=== PATIENT | male | born 1960 | race Caucasian/White ===

== ENCOUNTER 2017-12-29 05:54 | Observation (INO) ==
[2017-12-29] MEDS ORDERED: MORPHINE 4 MG/1 ML VIAL IV STA (06:19)
[2017-12-29] MEDS ORDERED: ENOXAPARIN 100 MG/ML SYRINGE SUBCUT STA (06:19)
[2017-12-29] MEDS ORDERED: ASPIRIN 325 MG TABLET PO STA (06:19)
[2017-12-29] MEDS ORDERED: ONDANSETRON 4 MG/2 ML VIAL IV STA (06:19)
[2017-12-29] MEDS ORDERED: NITROGLYCERIN 2% OINT 1 INCH/GM PACK TOP STA (06:19)
[2017-12-29] MEDS ORDERED: ENOXAPARIN 100 MG/ML SYRINGE SUBCUT ONE (06:21)
[2017-12-29] MEDS ORDERED: ENOXAPARIN 30 MG/0.3 ML SYRINGE ONE (06:22)
[2017-12-29] MEDS ORDERED: SODIUM CHLORIDE 0.9% 1,000 ML IV STA ×2 (06:42→07:57)
[2017-12-29 07:25] LABS: INR 1.2; PT Patient Result 12.3 SECS; Partial Thromboplastin Time 29.1 SECS (0-40)
[2017-12-29 07:37] LABS: Basophils % 0.4 % (0.0-0.8); Eosinophils # 0.2 10*3/uL (0.0-0.87); Eosinophils % 2.8 % (0.00-10.9); Immature Granulocytes % 0.3 %; Immature Granulocytes Absolute 0.02 #; Lymphocytes # 0.7 10*3/uL (1.4-4.0); Lymphocytes % 8.1 % (21.2-54.2); Mean Corpuscular HGB Conc 34.4 GM/DL (32-36); Mean Corpuscular Hemoglobin 32 PG (27-34); Mean Corpuscular Volume 93.5 FL (87-102); Mean Platelet Volume 10.9 FL (9.6-12.0); Monocytes # 0.5 10*3/uL (0.11-0.8); Monocytes % 5.6 % (1.7-12.7); Neutrophils # 6.6 10*3/uL (1.4-7.4); Neutrophils % 82.8 % (38.7-73.9); Platelet Count 169 T/CUMM (130-400); Red Blood Count 6.44 MC/CUMM (3.8-5.5); Red Cell Distribution Width 13.2 % (9.3-17.3)
[2017-12-29 07:40] LABS: Hematocrit 60.2 VOL% (42.0-52.0); Hemoglobin 20.7 GM/DL (14.0-18.0)
[2017-12-29 07:54] LABS: Albumin 3.8 G/DL (3.4-5.0); Bilirubin,Total 1.4 MG/DL (0.2-1.0); Calcium 9.2 MG/DL (8.5-10.1); Osmolality,Calculated 286.3 MOS/KG (273-304); Potassium 4.4 MMOL/L (3.5-5.1); Total Protein 7.4 G/DL (6.4-8.3)
[2017-12-29] MEDS ORDERED: ONDANSETRON 4 MG/2 ML VIAL IV PRN (08:39)
[2017-12-29] MEDS ORDERED: diphenhydrAMINE CAP 25 MG CAPSULE PO PRN (08:39)
[2017-12-29] MEDS ORDERED: ACETAMINOPHEN 325 MG TABLET PO PRN (08:39)
[2017-12-29] MEDS ORDERED: MORPHINE 4 MG/1 ML VIAL IV PRN (08:39)
[2017-12-29] MEDS ORDERED: NON-FORMULARY MEDICATION (Mesalamine [Lialda] 2.4 GM) PO SCH (09:00)
[2017-12-29] MEDS: SODIUM CHLORIDE 0.9% 1,000 ML IV SCH ×2 (10:53→21:58)
[2017-12-29] MEDS: LISINOPRIL 20 MG TABLET PO SCH (10:55)
[2017-12-29] MEDS: PANTOPRAZOLE 40 MG TABLET PO SCH (10:55)
[2017-12-30 05:34] LABS: Basophils % 0.4 % (0.0-0.8); Eosinophils # 0.1 10*3/uL (0.0-0.87); Eosinophils % 2.6 % (0.00-10.9); Hematocrit 48.1 VOL% (42.0-52.0); Hemoglobin 16.4 GM/DL (14.0-18.0); Immature Granulocytes % 0.4 %; Immature Granulocytes Absolute 0.02 #; Lymphocytes # 1.5 10*3/uL (1.4-4.0); Lymphocytes % 27.9 % (21.2-54.2); Mean Corpuscular HGB Conc 34.1 GM/DL (32-36); Mean Corpuscular Hemoglobin 32 PG (27-34); Mean Corpuscular Volume 94.3 FL (87-102); Mean Platelet Volume 10.6 FL (9.6-12.0); Monocytes # 0.6 10*3/uL (0.11-0.8); Monocytes % 10.9 % (1.7-12.7); Neutrophils # 3.1 10*3/uL (1.4-7.4); Neutrophils % 57.8 % (38.7-73.9); Platelet Count 126 T/CUMM (130-400); Red Cell Distribution Width 12.7 % (9.3-17.3); White Blood Count 5.3 T/CUMM (4-12)
[2017-12-30 06:15] LABS: Albumin 2.9 G/DL (3.4-5.0); Bilirubin,Total 1.1 MG/DL (0.2-1.0); Calcium 7.3 MG/DL (8.5-10.1); Osmolality,Calculated 278.5 MOS/KG (273-304); Potassium 3.5 MMOL/L (3.5-5.1); Risk Ratio 4.22; Thyroid Stimulating Hormone 1.21 uIU/ml (0.358-3.74); Total Protein 5.7 G/DL (6.4-8.3); VLDL CHOLESTEROL 21.4 MG/DL
[2017-12-30] MEDS ORDERED: LEVOTHYROXINE 50 MCG TABLET PO SCH (07:00)
[2017-12-30] MEDS ORDERED: MAGNESIUM SULF RIDER 4 GM in PREMIX 1 EACH IV PRN (08:39)
[2017-12-30] MEDS ORDERED: MAGNESIUM SULF RIDER 2 GM in PREMIX 1 EACH IV PRN (08:39)
[2017-12-30] MEDS ORDERED: ENOXAPARIN 40 MG/0.4 ML SYRINGE SUBCUT SCH (09:00)
[2017-12-30] MEDS ORDERED: ASPIRIN CHEW 81 MG TABLET PO SCH (09:00)
[2017-12-30] MEDS: LISINOPRIL 20 MG TABLET PO SCH (09:01)
[2017-12-30] MEDS: PANTOPRAZOLE 40 MG TABLET PO SCH (09:01)
[2017-12-30] MEDS: SODIUM CHLORIDE 0.9% 1,000 ML IV SCH (09:22)
[2017-12-30 12:53] VITALS: BP 110/79
[2017-12-31 12:07] LABS: Erythropoietin 11.3 mIU/mL (2.6 - 18.5)
[2018-01-02 13:56] LABS: JAK2 Result see interpretation
== END 2017-12-30 13:49 | disposition home or self-care (01) ==
LOC: N.EDINP 05:54 → N.ED 05:54 → N.2W 09:29 → N.TELEN 11:03
PROVIDERS: ADMIT Internal Medicine; ATTEND Internal Medicine

== ENCOUNTER 2020-02-18 08:05 | Observation (INO) ==
[2020-02-18] MEDS ORDERED: methylPREDNISolone SOD SUC 125 MG/2 ML VIAL IV STA (08:45)
[2020-02-18 09:13] LABS: Basophils % 0.3 % (0.0-0.8); Eosinophils # 0.1 10*3/uL (0.0-0.87); Eosinophils % 1.1 % (0.00-10.9); Hematocrit 48.6 VOL% (42.0-52.0); Hemoglobin 17.4 GM/DL (14.0-18.0); Immature Granulocytes % 0.4 %; Immature Granulocytes Absolute 0.05 #; Lymphocytes # 1.9 10*3/uL (1.4-4.0); Lymphocytes % 16.1 % (21.2-54.2); Mean Corpuscular HGB Conc 35.8 GM/DL (32-36); Mean Corpuscular Volume 90.8 FL (87-102); Mean Platelet Volume 9.6 FL (9.6-12.0); Monocytes % 2.2 % (1.7-12.7); Neutrophils % 79.9 % (38.7-73.9); Platelet Count 159 T/CUMM (130-400); Red Blood Count 5.35 MC/CUMM (3.8-5.5); Red Cell Distribution Width 12.5 % (9.3-17.3); White Blood Count 11.5 T/CUMM (4-12)
[2020-02-18] MEDS ORDERED: SODIUM CHLORIDE 0.9% 1,000 ML IV STA ×2 (09:21→11:18)
[2020-02-18] MEDS ORDERED: ACETAMINOPHEN/CODEINE 120-12 MG/5 ML 12.5 ML UDCUP PO STA (09:21)
[2020-02-18 09:34] LABS: Albumin 3.5 G/DL (3.4-5.0); Calcium 8.8 MG/DL (8.5-10.1); Total Protein 6.8 G/DL (6.4-8.3)
[2020-02-18 12:12] LABS: Bacteria,Urine Occasional /HPF (Few); Bilirubin,Urine Negative (Negative); Blood, Urine Negative (Negative); Glucose,Urine (UA) Negative (Negative); Hyaline Casts,Urine 8 /LPF (0-3); Ketones,Urine Negative (Negative); Mucus,Urine Few /LPF (Occasional); Nitrite,Urine Negative (Negative); Protein,Urine Negative; RBC,Urine 1 /HPF (0-4); Squamous Epithelial Cell,Urine Occasional /HPF (0-10); Urine Appearance CLEAR (Clear); Urine Color Yellow (Yellow); Urine Specific Gravity 1.016 (1.001-1.035); Urine Urobilinogen < 2.0 EU/DL (0.2-1.0); WBC,Urine 3 /HPF (0-6)
[2020-02-18] MEDS ORDERED: methylPREDNISolone SOD SUC 40 MG/1 ML VIAL IV STA (13:18)
[2020-02-18] MEDS ORDERED: ACETAMINOPHEN 325 MG TABLET PO PRN (15:30)
[2020-02-18] MEDS ORDERED: DEXTROSE 50% 25 GM/50 ML VIAL IV PRN (15:30)
[2020-02-18] MEDS ORDERED: GLUCAGON 1 MG VIAL IM PRN (15:30)
[2020-02-18] MEDS: SODIUM CHLORIDE 0.9% 1,000 ML IV SCH (18:43)
[2020-02-18] MEDS: diphenhydrAMINE CAP 25 MG CAPSULE PO PRN (18:46)
[2020-02-19] MEDS: diphenhydrAMINE CAP 25 MG CAPSULE PO PRN ×3 (00:17→18:02)
[2020-02-19] MEDS: SODIUM CHLORIDE 0.9% 1,000 ML IV SCH (02:02)
[2020-02-19] MEDS ORDERED: PHENOL 1.4% THROAT SPRAY 177 ML BOTTLE PO PRN (02:14)
[2020-02-19] MEDS: ALUMINUM/MAGNES/SIMETH MAX STR 30 ML UDCUP PO PRN ×2 (02:41→20:05)
[2020-02-19 05:51] LABS: Basophils % 0.1 % (0.0-0.8); Eosinophils % 0.2 % (0.00-10.9); Hematocrit 45.6 VOL% (42.0-52.0); Immature Granulocytes % 0.6 %; Immature Granulocytes Absolute 0.07 #; Lymphocytes # 1.4 10*3/uL (1.4-4.0); Lymphocytes % 11.5 % (21.2-54.2); Mean Corpuscular HGB Conc 35.1 GM/DL (32-36); Mean Corpuscular Volume 93.1 FL (87-102); Mean Platelet Volume 9.8 FL (9.6-12.0); Monocytes % 2.5 % (1.7-12.7); Neutrophils % 85.1 % (38.7-73.9); Platelet Count 147 T/CUMM (130-400); Red Cell Distribution Width 12.3 % (9.3-17.3); White Blood Count 12.2 T/CUMM (4-12)
[2020-02-19 06:14] LABS: Calcium 8.6 MG/DL (8.5-10.1); Osmolality,Calculated 280.7 MOS/KG (273-304); Risk Ratio 2.41; VLDL CHOLESTEROL 12.8 MG/DL
[2020-02-19] MEDS ORDERED: ALUM/MAG/SIMETH/LIDO VISC 1:1 30 ML BOTTLE PO ONE (08:48)
[2020-02-19] MEDS ORDERED: ASPIRIN CHEW 81 MG TABLET PO ONE (08:51)
[2020-02-19] MEDS: NITROGLYCERIN SL 0.4 MG TABLET SL PRN ×3 (08:54→09:05)
[2020-02-19] MEDS ORDERED: ASPIRIN 325 MG TABLET ONE (08:55)
[2020-02-19] MEDS ORDERED: MORPHINE 4 MG/1 ML VIAL IV PRN (08:58)
[2020-02-19] MEDS ORDERED: MORPHINE 4 MG/1 ML VIAL ONE (08:59)
[2020-02-19] MEDS ORDERED: ENOXAPARIN 30 MG/0.3 ML SYRINGE SUBCUT SCH (09:00)
[2020-02-19] MEDS: methylPREDNISolone SOD SUC 40 MG/1 ML VIAL IV SCH (09:54)
[2020-02-19] MEDS: PANTOPRAZOLE 40 MG TABLET PO SCH (12:57)
[2020-02-19] MEDS: DILTIAZEM CD 120 MG CAPSULE PO SCH (14:05)
[2020-02-19 15:35] LABS: Troponin I < 0.015 NG/ML (0.00-0.045)
[2020-02-19] MEDS ORDERED: diphenhydrAMINE 2% CREAM 28 GM TUBE TOP PRN (21:50)
[2020-02-20] MEDS: diphenhydrAMINE CAP 25 MG CAPSULE PO PRN ×2 (00:08→06:20)
[2020-02-20 06:01] LABS: Basophils % 0.4 % (0.0-0.8); Eosinophils # 0.1 10*3/uL (0.0-0.87); Eosinophils % 1.1 % (0.00-10.9); Hematocrit 43.6 VOL% (42.0-52.0); Hemoglobin 15.1 GM/DL (14.0-18.0); Immature Granulocytes % 0.5 %; Immature Granulocytes Absolute 0.05 #; Lymphocytes # 1.7 10*3/uL (1.4-4.0); Lymphocytes % 16.1 % (21.2-54.2); Mean Corpuscular HGB Conc 34.6 GM/DL (32-36); Mean Corpuscular Volume 94.6 FL (87-102); Monocytes % 6.3 % (1.7-12.7); Neutrophils % 75.6 % (38.7-73.9); Platelet Count 146 T/CUMM (130-400); Red Blood Count 4.61 MC/CUMM (3.8-5.5); Red Cell Distribution Width 12.4 % (9.3-17.3); White Blood Count 10.4 T/CUMM (4-12)
[2020-02-20 06:20] LABS: Calcium 8.4 MG/DL (8.5-10.1); Osmolality,Calculated 283.4 MOS/KG (273-304)
[2020-02-20] MEDS: LEVOTHYROXINE 50 MCG TABLET PO SCH (06:20)
[2020-02-20] MEDS: SODIUM CHLORIDE 0.9% 1,000 ML IV SCH ×2 (06:21→12:45)
[2020-02-20] MEDS: APIXABAN 5 MG TABLET PO SCH ×2 (09:11→21:29)
[2020-02-20] MEDS: DILTIAZEM CD 120 MG CAPSULE PO SCH (09:11)
[2020-02-20] MEDS: ASPIRIN CHEW 81 MG TABLET PO SCH (09:11)
[2020-02-20] MEDS: PANTOPRAZOLE 40 MG TABLET PO SCH (09:11)
[2020-02-20] MEDS: methylPREDNISolone SOD SUC 40 MG/1 ML VIAL IV SCH ×3 (09:12→21:30)
[2020-02-20] MEDS: MESALAMINE 800 MG TABLET PO SCH (11:48)
[2020-02-20] MEDS: clonazePAM 0.5 MG TABLET PO PRN ×2 (11:48→21:30)
[2020-02-20] MEDS: diphenhydrAMINE 50 MG/1 ML VIAL IV PRN (21:29)
[2020-02-21] MEDS: diphenhydrAMINE 50 MG/1 ML VIAL IV PRN (04:09)
[2020-02-21] MEDS: LEVOTHYROXINE 50 MCG TABLET PO SCH (05:41)
[2020-02-21 05:42] LABS: Basophils % 0.2 % (0.0-0.8); Immature Granulocytes % 0.5 %; Immature Granulocytes Absolute 0.03 #; Lymphocytes # 1.1 10*3/uL (1.4-4.0); Mean Corpuscular HGB Conc 34.1 GM/DL (32-36); Mean Corpuscular Volume 93.4 FL (87-102); Mean Platelet Volume 9.9 FL (9.6-12.0); Monocytes % 4.3 % (1.7-12.7); Platelet Count 127 T/CUMM (130-400); Red Blood Count 4.39 MC/CUMM (3.8-5.5); Red Cell Distribution Width 12.2 % (9.3-17.3)
[2020-02-21 05:50] LABS: White Blood Count 5.6 T/CUMM (4-12)
[2020-02-21 06:02] LABS: Calcium 8.4 MG/DL (8.5-10.1); Osmolality,Calculated 285.4 MOS/KG (273-304)
[2020-02-21 08:11] LABS: Platelet Estimate Adequate; Schistocytes Slight; Target Cells Few
[2020-02-21] MEDS: DILTIAZEM CD 120 MG CAPSULE PO SCH (09:10)
[2020-02-21] MEDS: ASPIRIN CHEW 81 MG TABLET PO SCH (09:35)
[2020-02-21] MEDS: MESALAMINE 800 MG TABLET PO SCH (09:35)
[2020-02-21] MEDS: APIXABAN 5 MG TABLET PO SCH (09:35)
[2020-02-21] MEDS: PANTOPRAZOLE 40 MG TABLET PO SCH (09:35)
[2020-02-21] MEDS: methylPREDNISolone SOD SUC 40 MG/1 ML VIAL IV SCH (09:35)
[2020-02-21 13:38] VITALS: BP 118/67
== END 2020-02-21 14:00 | disposition home or self-care (01) ==
LOC: N.ED 08:05 → N.EDINP 08:05 → SUATTDRO 14:26 → N.EDINP 17:33 → N.3E 17:36
PROVIDERS: ADMIT Internal Medicine; ATTEND Internal Medicine

== ENCOUNTER 2020-11-24 22:30 | Inpatient (IN) ==
[2020-11-24] MEDS ORDERED: SODIUM CHLORIDE 0.9% 500 ML IV STA (23:16)
[2020-11-25 01:02] LABS: Basophils % 0.2 % (0.0-0.8); Eosinophils % 0.1 % (0.00-10.9); Hematocrit 48.3 VOL% (42.0-52.0); Hemoglobin 16.9 GM/DL (14.0-18.0); Immature Granulocytes % 1.2 %; Immature Granulocytes Absolute 0.13 #; Lymphocytes # 0.7 10*3/uL (1.4-4.0); Mean Corpuscular Volume 94.2 FL (87-102); Mean Platelet Volume 10.3 FL (9.6-12.0); Monocytes % 1.6 % (1.7-12.7); Neutrophils % 90.9 % (38.7-73.9); Platelet Count 99 T/CUMM (130-400); Red Blood Count 5.13 MC/CUMM (3.8-5.5); Red Cell Distribution Width 12.6 % (9.3-17.3); White Blood Count 10.8 T/CUMM (4-12)
[2020-11-25 01:14] LABS: Albumin 3.9 G/DL (3.4-5.0); Bilirubin,Total 2.1 MG/DL (0.20-1.00); Calcium 8.5 MG/DL (8.5-10.1); Osmolality,Calculated 284.3 MOS/KG (273-304); Total Protein 6.6 G/DL (6.4-8.2)
[2020-11-25] MEDS ORDERED: SODIUM CHLORIDE 0.9% 1,000 ML IV STA (01:15)
[2020-11-25] MEDS ORDERED: PIPERACILLIN/TAZOBACTAM 3,375 MG in SODIUM CHLORIDE 0.9% 100 ML IV STA (02:01)
[2020-11-25] MEDS ORDERED: SODIUM CHLORIDE 0.9% 500 ML IV STA (03:19)
[2020-11-25] MEDS: NOREPINEPHRINE 8 MG in SODIUM CHLORIDE 0.9% 242 ML IV PRN ×2 (03:20→15:25)
[2020-11-25 03:31] LABS: Platelet Estimate Decreased
[2020-11-25] MEDS ORDERED: ACETAMINOPHEN 325 MG TABLET PO PRN (03:47)
[2020-11-25] MEDS ORDERED: DEXTROSE 50% 25 GM/50 ML VIAL IV PRN (03:47)
[2020-11-25] MEDS ORDERED: hydrALAZINE 20 MG/1 ML VIAL IV PRN (03:47)
[2020-11-25] MEDS ORDERED: MORPHINE 2 MG/1 ML SYRINGE IV PRN (03:47)
[2020-11-25] MEDS ORDERED: NICOTINE 21 MG/24 HR PATCH TRANSDERM PRN (03:47)
[2020-11-25] MEDS ORDERED: GLUCAGON 1 MG VIAL IM PRN (03:47)
[2020-11-25] MEDS ORDERED: ONDANSETRON 4 MG/2 ML VIAL IV PRN (03:47)
[2020-11-25 03:53] LABS: Blood, Urine Large mg/dL (Negative); Glucose,Urine (UA) Negative (Negative); Hyaline Casts,Urine 37 /LPF (0-3); Ketones,Urine Negative (Negative); Mucus,Urine Occasional /LPF (Occasional); Nitrite,Urine Negative (Negative); Protein,Urine 30 MG/DL; RBC,Urine 525 /HPF (0-4); Squamous Epithelial Cell,Urine Occasional /HPF (0-10); Urine Appearance CLOUDY (Clear); Urine Color Amber (Yellow); Urine Specific Gravity 1.024 (1.001-1.035)
[2020-11-25 03:54] LABS: Bilirubin,Urine Small mg/dL (Negative)
[2020-11-25] MEDS ORDERED: LEVOFLOXACIN INJ 750 MG/150 ML PREMIX IV STA (03:59)
[2020-11-25 04:27] LABS: Polychromasia Few
[2020-11-25] MEDS: MEROPENEM 500 MG in SODIUM CHLORIDE 0.9% 100 ML IV SCH ×4 (06:29→23:17)
[2020-11-25] MEDS: LEVOTHYROXINE 50 MCG TABLET PO SCH (07:27)
[2020-11-25] MEDS: APIXABAN 5 MG TABLET PO SCH ×2 (08:29→20:36)
[2020-11-25] MEDS: ASPIRIN CHEW 81 MG TABLET PO SCH (08:29)
[2020-11-25] MEDS: SODIUM CHLORIDE 0.9% 1,000 ML IV SCH ×3 (08:29→19:27)
[2020-11-25] MEDS ORDERED: MESALAMINE 1.2 GM PO SCH (09:00)
[2020-11-25] MEDS ORDERED: LACTATED RINGERS 1,000 ML IV ONE (11:05)
[2020-11-25] MEDS ORDERED: GENTAMICIN INJ 240 MG in SODIUM CHLORIDE 0.9% 100 ML IV ONE (12:00)
[2020-11-25] MEDS ORDERED: NOREPINEPHRINE 4 MG/4 ML VIAL IV ONE (15:20)
[2020-11-26] MEDS: SODIUM CHLORIDE 0.9% 1,000 ML IV SCH ×3 (03:26→15:35)
[2020-11-26] MEDS: MEROPENEM 500 MG in SODIUM CHLORIDE 0.9% 100 ML IV SCH ×4 (05:28→23:14)
[2020-11-26] MEDS: LEVOFLOXACIN INJ 750 MG/150 ML PREMIX IV SCH (06:00)
[2020-11-26 06:53] LABS: Basophils % 0.4 % (0.0-0.8); Eosinophils # 0.1 10*3/uL (0.0-0.87); Eosinophils % 0.9 % (0.00-10.9); Immature Granulocytes % 0.5 %; Immature Granulocytes Absolute 0.03 #; Lymphocytes # 0.5 10*3/uL (1.4-4.0); Lymphocytes % 9.5 % (21.2-54.2); Mean Corpuscular HGB Conc 34.2 GM/DL (32-36); Mean Corpuscular Volume 95.6 FL (87-102); Mean Platelet Volume 10.5 FL (9.6-12.0); Monocytes % 4.6 % (1.7-12.7); Neutrophils % 84.1 % (38.7-73.9); Red Cell Distribution Width 13.1 % (9.3-17.3)
[2020-11-26 07:00] LABS: Hemoglobin 14.7 GM/DL (14.0-18.0); Platelet Count 56 T/CUMM (130-400); White Blood Count 5.7 T/CUMM (4-12)
[2020-11-26 07:08] LABS: Calcium 7.9 MG/DL (8.5-10.1); Osmolality,Calculated 279.4 MOS/KG (273-304); Potassium 3.6 MMOL/L (3.5-5.1)
[2020-11-26] MEDS: LEVOTHYROXINE 50 MCG TABLET PO SCH (07:23)
[2020-11-26 08:05] LABS: Band Neutrophils 19 % (0-10); Eosinophils 3 % (0-10); Lymphocytes 7 % (20-55); Platelet Estimate Decreased; Segmented Neutrophils 66 % (50-85); Total Cells Counted 100
[2020-11-26 08:06] LABS: Anisocytosis 1+; Burr Cells Few; Macrocytosis Slight
[2020-11-26] MEDS: ASPIRIN CHEW 81 MG TABLET PO SCH (08:08)
[2020-11-26] MEDS: APIXABAN 5 MG TABLET PO SCH ×2 (08:08→20:53)
[2020-11-26] MEDS: MESALAMINE 800 MG TABLET PO SCH (08:08)
[2020-11-26] MEDS ORDERED: MAGNESIUM SULF RIDER 2 GM/50 ML PREMIX IV ONE (08:29)
[2020-11-26] MEDS: FAMOTIDINE 20 MG/2 ML VIAL IV SCH (15:34)
[2020-11-26] MEDS: MELATONIN 3 MG TABLET PO PRN (23:40)
[2020-11-27] MEDS: SODIUM CHLORIDE 0.9% 1,000 ML IV SCH ×3 (01:09→18:52)
[2020-11-27] MEDS: FAMOTIDINE 20 MG/2 ML VIAL IV SCH ×2 (04:28→14:55)
[2020-11-27] MEDS: MEROPENEM 500 MG in SODIUM CHLORIDE 0.9% 100 ML IV SCH ×2 (04:43→12:27)
[2020-11-27 05:15] LABS: Basophils % 0.3 % (0.0-0.8); Eosinophils # 0.1 10*3/uL (0.0-0.87); Eosinophils % 3.3 % (0.00-10.9); Hematocrit 41.3 VOL% (42.0-52.0); Hemoglobin 14.1 GM/DL (14.0-18.0); Immature Granulocytes % 0.3 %; Immature Granulocytes Absolute 0.01 #; Lymphocytes % 30.4 % (21.2-54.2); Mean Corpuscular HGB Conc 34.1 GM/DL (32-36); Mean Platelet Volume 10.4 FL (9.6-12.0); Neutrophils % 58.7 % (38.7-73.9); Platelet Count 52 T/CUMM (130-400); White Blood Count 3.3 T/CUMM (4-12)
[2020-11-27 05:50] LABS: Calcium 8.2 MG/DL (8.5-10.1); Osmolality,Calculated 275.5 MOS/KG (273-304); Potassium 3.8 MMOL/L (3.5-5.1)
[2020-11-27 05:51] LABS: Band Neutrophils 1 % (0-10); Eosinophils 1 % (0-10); Lymphocytes 28 % (20-55); Platelet Estimate Decreased; Segmented Neutrophils 64 % (50-85); Total Cells Counted 100
[2020-11-27] MEDS: LEVOFLOXACIN INJ 750 MG/150 ML PREMIX IV SCH (06:19)
[2020-11-27] MEDS ORDERED: diphenhydrAMINE CAP 25 MG CAPSULE PO PRN (07:00)
[2020-11-27] MEDS: ASPIRIN CHEW 81 MG TABLET PO SCH (08:54)
[2020-11-27] MEDS: APIXABAN 5 MG TABLET PO SCH ×2 (08:55→20:45)
[2020-11-27] MEDS: MESALAMINE 800 MG TABLET PO SCH (08:56)
[2020-11-27] MEDS: LEVOTHYROXINE 50 MCG TABLET PO SCH (09:00)
[2020-11-27] MEDS: cefTRIAXone 1,000 MG in SODIUM CHLORIDE 0.9% 100 ML IV SCH (14:55)
[2020-11-27] MEDS: [UNRECOGNIZED DRUG - OTHER] PO SCH (20:46)
[2020-11-27] MEDS: [UNRECOGNIZED DRUG - MIXTURE] PO SCH (20:46)
[2020-11-28] MEDS: FAMOTIDINE 20 MG/2 ML VIAL IV SCH ×2 (03:01→15:44)
[2020-11-28 06:16] LABS: Basophils % 0.2 % (0.0-0.8); Eosinophils # 0.1 10*3/uL (0.0-0.87); Eosinophils % 2.9 % (0.00-10.9); Hematocrit 41.5 VOL% (42.0-52.0); Hemoglobin 14.3 GM/DL (14.0-18.0); Immature Granulocytes % 0.5 %; Immature Granulocytes Absolute 0.02 #; Lymphocytes # 1.4 10*3/uL (1.4-4.0); Mean Corpuscular HGB Conc 34.5 GM/DL (32-36); Mean Corpuscular Volume 95.4 FL (87-102); Mean Platelet Volume 10.5 FL (9.6-12.0); Monocytes % 9.5 % (1.7-12.7); Neutrophils % 51.9 % (38.7-73.9); Platelet Count 57 T/CUMM (130-400); Red Blood Count 4.35 MC/CUMM (3.8-5.5); Red Cell Distribution Width 12.8 % (9.3-17.3); White Blood Count 4.1 T/CUMM (4-12)
[2020-11-28] MEDS: LEVOTHYROXINE 50 MCG TABLET PO SCH (06:16)
[2020-11-28 06:35] LABS: Calcium 8.4 MG/DL (8.5-10.1); Osmolality,Calculated 279.4 MOS/KG (273-304); Potassium 3.8 MMOL/L (3.5-5.1)
[2020-11-28] MEDS: TAMSULOSIN 0.4 MG CAPSULE PO SCH ×2 (09:01→21:24)
[2020-11-28] MEDS: MESALAMINE 800 MG TABLET PO SCH (09:01)
[2020-11-28] MEDS: APIXABAN 5 MG TABLET PO SCH ×2 (09:01→21:27)
[2020-11-28] MEDS: ASPIRIN CHEW 81 MG TABLET PO SCH (09:02)
[2020-11-28] MEDS: [UNRECOGNIZED DRUG - OTHER] PO SCH ×2 (09:02→21:23)
[2020-11-28] MEDS: [UNRECOGNIZED DRUG - MIXTURE] PO SCH ×2 (09:02→21:23)
[2020-11-28] MEDS: cefTRIAXone 1,000 MG in SODIUM CHLORIDE 0.9% 100 ML IV SCH (15:43)
[2020-11-28] MEDS: MELATONIN 3 MG TABLET PO PRN (21:24)
[2020-11-29] MEDS: FAMOTIDINE 20 MG/2 ML VIAL IV SCH (03:30)
[2020-11-29 05:58] LABS: Basophils % 0.7 % (0.0-0.8); Eosinophils # 0.2 10*3/uL (0.0-0.87); Eosinophils % 3.8 % (0.00-10.9); Hematocrit 41.7 VOL% (42.0-52.0); Hemoglobin 14.4 GM/DL (14.0-18.0); Immature Granulocytes % 0.9 %; Immature Granulocytes Absolute 0.04 #; Lymphocytes # 1.8 10*3/uL (1.4-4.0); Lymphocytes % 40.3 % (21.2-54.2); Mean Corpuscular HGB Conc 34.5 GM/DL (32-36); Mean Corpuscular Volume 94.6 FL (87-102); Mean Platelet Volume 10.2 FL (9.6-12.0); Monocytes % 10.6 % (1.7-12.7); Neutrophils % 43.7 % (38.7-73.9); Platelet Count 63 T/CUMM (130-400); Red Blood Count 4.41 MC/CUMM (3.8-5.5); Red Cell Distribution Width 12.7 % (9.3-17.3); White Blood Count 4.4 T/CUMM (4-12)
[2020-11-29 06:22] LABS: Platelet Estimate Decreased
[2020-11-29 07:31] LABS: Calcium 8.4 MG/DL (8.5-10.1); Osmolality,Calculated 281.3 MOS/KG (273-304); Potassium 3.6 MMOL/L (3.5-5.1)
[2020-11-29] MEDS: MESALAMINE 800 MG TABLET PO SCH (09:39)
[2020-11-29] MEDS: cefTRIAXone 1,000 MG in SODIUM CHLORIDE 0.9% 100 ML IV SCH (09:39)
[2020-11-29] MEDS: APIXABAN 5 MG TABLET PO SCH (09:40)
[2020-11-29] MEDS: ASPIRIN CHEW 81 MG TABLET PO SCH (09:40)
[2020-11-29] MEDS: [UNRECOGNIZED DRUG - OTHER] PO SCH (09:40)
[2020-11-29] MEDS: TAMSULOSIN 0.4 MG CAPSULE PO SCH (09:40)
[2020-11-29] MEDS: LEVOTHYROXINE 50 MCG TABLET PO SCH (09:41)
[2020-11-29] MEDS: [UNRECOGNIZED DRUG - MIXTURE] PO SCH (09:41)
[2020-11-29 12:03] VITALS: BP 146/74
== END 2020-11-29 14:34 | disposition home or self-care (01) | DRG 871 ==
LOC: N.ED 22:30 → N.EDINP 11-25 03:47 → SUATTDRO 11-25 03:47 → N.EDINP 11-25 04:30 → N.CC 11-25 05:07 → N.5E 11-27 12:44
PROVIDERS: ADMIT Internal Medicine; ATTEND Internal Medicine

== ENCOUNTER 2021-12-03 18:43 | Inpatient (IN) ==
[2021-12-03] MEDS ORDERED: ADENOSINE 6 MG/2 ML VIAL ONE (18:55)
[2021-12-03] MEDS ORDERED: DILTIAZEM 25 MG/5 ML VIAL IV ONE (18:59)
[2021-12-03] MEDS ORDERED: DILTIAZEM 100 MG VIAL.ADD IV ONE (18:59)
[2021-12-03] MEDS ORDERED: SODIUM CHLORIDE 0.9% 1,000 ML IV STA ×3 (19:00→20:05)
[2021-12-03] MEDS ORDERED: SODIUM CHLORIDE 0.9% 500 ML IV STA ×2 (19:00→20:00)
[2021-12-03 19:02] LABS: Basophils # 0.1 10*3/uL (0.0-0.2); Basophils % 0.5 % (0.0-0.8); Eosinophils # 0.2 10*3/uL (0.0-0.87); Eosinophils % 1.4 % (0.00-10.9); Hematocrit 52.7 VOL% (42.0-52.0); Hemoglobin 17.8 GM/DL (14.0-18.0); Immature Granulocytes % 0.2 %; Immature Granulocytes Absolute 0.02 #; Lymphocytes # 3.5 10*3/uL (1.4-4.0); Lymphocytes % 31.1 % (21.2-54.2); Mean Corpuscular HGB Conc 33.8 GM/DL (32-36); Mean Corpuscular Volume 91.3 FL (87-102); Mean Platelet Volume 9.6 FL (9.6-12.0); Monocytes % 8.7 % (1.7-12.7); Neutrophils % 58.1 % (38.7-73.9); Platelet Count 209 T/CUMM (130-400); Red Blood Count 5.77 MC/CUMM (3.8-5.5); Red Cell Distribution Width 13.3 % (9.3-17.3); White Blood Count 11.1 T/CUMM (4-12)
[2021-12-03] MEDS ORDERED: fentaNYL 100 MCG/2 ML VIAL IV STA ×2 (19:04→19:15)
[2021-12-03] MEDS ORDERED: DILTIAZEM 25 MG/5 ML VIAL IV STA (19:21)
[2021-12-03 19:28] LABS: Albumin 4.4 G/DL (3.4-5.0); Bilirubin,Total 1.6 MG/DL (0.20-1.00); Calcium 10.6 MG/DL (8.5-10.1); Osmolality,Calculated 281.7 MOS/KG (273-304); Potassium 3.9 MMOL/L (3.5-5.1); Total Protein 7.8 G/DL (6.4-8.2)
[2021-12-03] MEDS ORDERED: DEXTROSE 10% 250 ML BAG IV PRN (20:18)
[2021-12-03] MEDS ORDERED: ONDANSETRON 4 MG/2 ML VIAL IV PRN (20:18)
[2021-12-03] MEDS ORDERED: traZODone 50 MG TABLET PO PRN (20:18)
[2021-12-03] MEDS ORDERED: GLUCAGON 1 MG VIAL IM PRN (20:18)
[2021-12-03] MEDS ORDERED: DOCUSATE SODIUM 100 MG CAPSULE PO PRN (20:18)
[2021-12-03] MEDS ORDERED: ACETAMINOPHEN 325 MG TABLET PO PRN (20:18)
[2021-12-03] MEDS ORDERED: DIGOXIN 0.5 MG/2 ML AMP IV STA (21:34)
[2021-12-03] MEDS: TAMSULOSIN 0.4 MG CAPSULE PO SCH (23:00)
[2021-12-03] MEDS: APIXABAN 5 MG TABLET PO SCH (23:00)
[2021-12-03] MEDS ORDERED: PNEUMOCOCCAL VACCINE (23 VALENT) 0.5 ML VIAL IM ONE (23:52)
[2021-12-04 03:50] LABS: Basophils % 0.3 % (0.0-0.8); Eosinophils % 0.3 % (0.00-10.9); Hemoglobin 14.8 GM/DL (14.0-18.0); Immature Granulocytes % 0.2 %; Immature Granulocytes Absolute 0.02 #; Lymphocytes # 1.8 10*3/uL (1.4-4.0); Lymphocytes % 20.6 % (21.2-54.2); Mean Corpuscular HGB Conc 33.6 GM/DL (32-36); Mean Corpuscular Volume 91.7 FL (87-102); Monocytes # 0.5 10*3/uL (0.11-0.8); Monocytes % 6.2 % (1.7-12.7); Neutrophils % 72.4 % (38.7-73.9); Platelet Count 152 T/CUMM (130-400); Red Cell Distribution Width 13.2 % (9.3-17.3); White Blood Count 8.8 T/CUMM (4-12)
[2021-12-04 04:12] LABS: Albumin 3.3 G/DL (3.4-5.0); Bilirubin,Direct 0.46 MG/DL (0.0-0.20); Bilirubin,Indirect 0.8 MG/DL (0.0-1.0); Bilirubin,Total 1.3 MG/DL (0.20-1.00); Total Protein 5.7 G/DL (6.4-8.2)
[2021-12-04 04:18] LABS: Calcium 8.4 MG/DL (8.5-10.1); Osmolality,Calculated 280.5 MOS/KG (273-304); Potassium 3.9 MMOL/L (3.5-5.1); Thyroid Stimulating Hormone 1.49 uIU/ml (0.358-3.74)
[2021-12-04 04:49] LABS: Hepatitis B Core IgM Quant 0.18 Index; Hepatitis B Surface Ag Quant < 0.10 Index; Hepatitis B Surface Ag Result Non-Reactive (NonReactive); Hepatitis C Virus Ab Quant 0.07 Index; Hepatitis C Virus Ab Result Non-Reactive (NonReactive)
[2021-12-04] MEDS: LEVOTHYROXINE 50 MCG TABLET PO SCH (06:18)
[2021-12-04] MEDS: ASPIRIN CHEW 81 MG TABLET PO SCH (08:25)
[2021-12-04] MEDS: APIXABAN 5 MG TABLET PO SCH ×2 (08:25→21:15)
[2021-12-04] MEDS: TAMSULOSIN 0.4 MG CAPSULE PO SCH ×2 (08:25→21:16)
[2021-12-04] MEDS: METOPROLOL SUCCINATE XL 50 MG TABLET PO SCH (09:32)
[2021-12-04] MEDS: DIGOXIN 0.125 MG TABLET PO SCH (12:35)
[2021-12-05 05:27] LABS: Calcium 8.8 MG/DL (8.5-10.1); Osmolality,Calculated 282.3 MOS/KG (273-304); Potassium 3.5 MMOL/L (3.5-5.1)
[2021-12-05] MEDS: LEVOTHYROXINE 50 MCG TABLET PO SCH (06:15)
[2021-12-05] MEDS ORDERED: POTASSIUM CHLORIDE 20 MEQ TABLET PO ONE (08:52)
[2021-12-05] MEDS ORDERED: MAGNESIUM SULF RIDER 2 GM/50 ML PREMIX IV ONE (08:53)
[2021-12-05] MEDS ORDERED: MESALAMINE 800 MG TABLET PO SCH (09:00)
[2021-12-05] MEDS: TAMSULOSIN 0.4 MG CAPSULE PO SCH (10:25)
[2021-12-05] MEDS: ASPIRIN CHEW 81 MG TABLET PO SCH (10:30)
[2021-12-05] MEDS: APIXABAN 5 MG TABLET PO SCH (10:30)
[2021-12-05] MEDS: METOPROLOL SUCCINATE XL 50 MG TABLET PO SCH (10:31)
[2021-12-05 11:44] VITALS: BP 134/73
[2021-12-05] MEDS: DIGOXIN 0.125 MG TABLET PO SCH (13:27)
== END 2021-12-05 16:00 | disposition home or self-care (01) | DRG 309 ==
LOC: N.ED 18:43 → N.EDINP 18:43 → SUATTDRO 20:17 → N.ICU 23:29 → N.TELES 12-04 15:52
PROVIDERS: ADMIT Internal Medicine; ATTEND Family Medicine